=== PATIENT | male | born 1995 | race Two or more races ===

== ENCOUNTER 2019-09-05 07:00 | Inpatient (IN) | payer OTHER ==
[~2019-09-05] VITALS: Ht 175.3 cm; Wt 67.1 kg
[2019-09-12] MEDS ORDERED: ceFAZolin sod 2 GM in D5W 110 ML IVPB ONE (07:00)
[2020-02-05] VITALS (15 sets, daily range): BP systolic 96–118; BP diastolic 43–69
[2020-02-05] MEDS ORDERED: ceFAZolin sod 2 GM in NS 55 ML IVPB ONE (05:30)
[2020-02-05] MEDS ORDERED: Midazolam 2mg/2ml Inj ONE (06:38)
[2020-02-05] MEDS ORDERED: fentaNYL 100 mcg/2 mL IV ONE (06:38)
[2020-02-05] MEDS ORDERED: Bacitracin 50000 Units Vial ONE (06:40)
[2020-02-05] MEDS ORDERED: Gelfoam Size TOPIC ONE (06:40)
[2020-02-05] MEDS ORDERED: Thrombin 5000 units TOPIC ONE (06:40)
[2020-02-05] MEDS ORDERED: Lidocaine 1% MPF 10mg/ml 5ml ONE (06:43)
[2020-02-05] MEDS ORDERED: Succinylcholine 20mg/ml 10ml vial ONE (06:55)
[2020-02-05] MEDS ORDERED: Rocuronium Bromide 100mg/10ml Inj IV ONE (06:55)
[2020-02-05] MEDS ORDERED: Neostigmine 1mg/ml 10ml Inj ONE (07:00)
[2020-02-05] MEDS ORDERED: Phenylephrine 10mg/ml Vial ONE (07:00)
[2020-02-05] MEDS ORDERED: Glycopyrrolate 0.2mg/ml 1ml Vial ONE (07:00)
[2020-02-05] MEDS ORDERED: propofoL 1,000mg/100ml IV ONE (07:00)
[2020-02-05] MEDS ORDERED: LR 1000ml ONE (07:00)
[2020-02-05] MEDS ORDERED: Sterile Water Irrig 1000ml IRRIG ONE (07:00)
--- NOTE | 2020-02-05 07:33 | Brief Operative Note ---
Immediate Post Operative Note Operative Note Chief Complaint: neck pain and radiculopathy Pre-op Diagnosis: C45 hnp Procedure: Cervical 45 artificial disc replacement Post-op Diagnosis: same as pre-op Findings: consistent w/pre-op dx studies Surgeon: Gaurav Reactor Service Operator: Justin Anesthesiologist: ANDRY Anesthesia: general Specimen: none Complications: none Condition: stable Fluids: IVF Estimated Blood Loss: minimal Drains: none Implant(s) used?: Yes - prodisc c sz 5 Charly Nolasco MD Feb 05, 2020 07:33
--- NOTE | 2020-02-05 07:33 | Pre-Procedure Note/Attestation ---
Pre-Procedure Note/Attestation Complete Prior to Procedure Planned Procedure: not applicable Procedure Narrative: Cervical 45 artificial disc replacement Indications for Procedure Pre-Operative Diagnosis: C45 hnp Attestation I attest that I discussed the nature of the procedure; its benefits; risks and complications; and alternatives (and the risks and benefits of such alternatives ), prior to the procedure, with the patient (or the patient's legal retention representative). I attest that, if there was a reasonable possibility of needing a blood transfusion, the patient (or the patient's legal retention representative) was given the [facility] standardized written summary, pursuant to the Bryant Sergio Blood Safety Act ([place] Health and Safety Code # 1645, as amended). I attest that I re-evaluated the patient just prior to the surgery and that there has been no change in the patient's H&P, except as documented below: Charly Nolasco MD Feb 05, 2020 07:33
[2020-02-05] MEDS ORDERED: Milk of Magnesia 30ml Ud ORAL PRN (07:45)
[2020-02-05] MEDS ORDERED: Naloxone 0.4mg/ml Inj IVP PRN (07:45)
[2020-02-05] MEDS ORDERED: HYDROcodone/Acetamin 7.5/325 tab ORAL PRN ×2 (07:45)
[2020-02-05] MEDS ORDERED: Morphine Sulfate 2mg/ml Inj(IV/IM USE ONLY) IV PRN (07:45)
[2020-02-05] MEDS ORDERED: HYDROcodone/Acetamin 5/325 tab ORAL PRN (07:45)
[2020-02-05] MEDS ORDERED: Chloraseptic Spray 20mL Bottle ORAL PRN (07:45)
[2020-02-05] MEDS ORDERED: HYDROmorphone 1mg/ml Carpuject IVP PRN (07:45)
[2020-02-05] MEDS ORDERED: Morphine Sulfate 4mg/ml Inj (IV USE ONLY) IV PRN ×2 (07:45)
[2020-02-05] MEDS ORDERED: Metoclopramide 10mg/2ml Inj IVP PRN ×2 (07:45→08:15)
[2020-02-05] MEDS ORDERED: Atropine Sulfate 0.4mg/ml inj ONE (07:48)
[2020-02-05] MEDS ORDERED: Acetaminophen (Non formulary) 100 ML IV ONE (08:00)
--- NOTE | 2020-02-05 08:00 | Anethesia Preoperative Eval ---
Anesthesia Pre-op PMH/ROS General Date of Evaluation: Feb 05, 2020 Time of Evaluation: 07:05 Anesthesiologist: Cristhian ASA Score: ASA 2 Mallampati Score Class I : Soft palate, uvula, fauces, pillars visible Class II: Soft palate, uvula, fauces visible Class III: Soft palate, base of uvula visible Class IV: Only hard plate visible Mallampati Classification: Class II Surgeon: Gaurav Diagnosis: Cervical radiculopathy Surgical Procedure: ACDF Anesthesia History: none Family History: no anesthesia problems Allergies: Coded Allergies: No Known Allergies (Unverified , 02/05/20) Medications: see eMAR Patient NPO?: Yes Past Medical History Cardiovascular: Denies: HTN, CAD, MD, valve dz, arrhythmia, other Pulmonary: Denies: asthma, COPD, YOAN, other Gastrointestinal/Genitourinary: Reports: GERD - mild; Denies: CRI, ESRD, other Neurologic/Psychiatric: Denies: dementia, CVA, depression/anxiety, TIA, other Endocrine: Denies: DM, hypothyroidism, steroids, other HEENT: Denies: cataract (L), cataract (R), glaucoma, GAKONA (L), GAKONA (R), other Hematology/Immune: Denies: anemia, DVT, bleeding disorder, other Musculoskeletal/Integumentary: Denies: OA, RA, DJD, DDD, edema, other PMH Narrative: as above PSxH Narrative: none Anesthesia Pre-op Phys. Exam Physician Exam Last Vital Signs Date Time Temp Pulse Resp B/P (MAP) Pulse Ox O2 Delivery O2 Flow Rate FiO2 02/05/20 05:47 Room Air 02/05/20 05:46 98.0 59 18 114/65 (81) 99 Constitutional: NAD Neurologic: CN 2-12 intact Cardiovascular: RRR, no M/R/G Respiratory: CTA Gastrointestinal: S/NT/ND Airway Exam Mallampati Score: Class II MO: full Neck: flexible ROM: full Teeth: intact Dentures: no upper, no lower Justin Carlin MD Feb 05, 2020 08:00
[2020-02-05] MEDS ORDERED: LR 1000ml 1,000 ML IVLG SCH (08:15)
[2020-02-05] MEDS ORDERED: Ketorolac 30mg Inj IV PRN (08:15)
[2020-02-05] MEDS ORDERED: Meperidine 25mg/0.5ml Inj (FOR RIGORS ONLY) IV PRN (08:15)
[2020-02-05] MEDS ORDERED: DiphenhydrAMINE 50mg/ml Inj IVP PRN (08:15)
[2020-02-05] MEDS ORDERED: Morphine Sulfate 10mg/ml Inj ONE (08:20)
--- NOTE | 2020-02-05 09:39 | Immediate Post-Op Evaluation ---
Immediate Post-Op Evalulation Immediate Post-Op Evalulation Procedure: ACDF C4-C5 Date of Evaluation: Feb 05, 2020 Time of Evaluation: 09:38 IV Fluids: 800 Blood Products: none Estimated Blood Loss: <50 Urinary Output: none Blood Pressure Systolic: 102 Blood Pressure Diastolic: 49 Pulse Rate: 66 Respiratory Rate: 20 O2 Sat by Pulse Oximetry: 99 Temperature (Fahrenheit): 97.6 Pain Score (1-10): 1 Nausea: No Vomiting: No Complications none Patient Status: reacts, patent, extubated, none Hydration Status: adequate Justin Carlin MD Feb 05, 2020 09:39
--- NOTE | 2020-02-05 11:00 | NUR ---
TRANSFER TO ROOM BY BED FULLY AWAKE AND ALERT IN NO DISTRESS OR SOB , PAIN LEVEL AT 3 NO N/V NOTED DERMABOND DRESSING DRY AND INTACT NO BLEEDING V/S STABLE. CALL LIGHT AT REACH BED LOCKED LOW POSITION . BELONGINGS WITH OPS . ENDORSE TO Wanda MACKAY RN
--- NOTE | 2020-02-05 11:30 | NUR ---
NURSE NOTES: Patient arrived to unit at 1100 via bed from PACU. Received report from Shreya Arredondo RN. Patient is awake and oriented, in no apparent distress. Patient reporting no pain and is only requesting water, ice and water provided. Surgical site clean, no bleeding noted, ice pack in place. IV intact, patent. SCD's in place. Neuro check assessed in tact. All belongings given to patient. Side rails upx2, bed low and locked, call light within reach.
--- NOTE | 2020-02-05 13:48 | 48 Hour Post Anesthesia Eval ---
Post Anesthesia Evaluation Procedure: ACDF C4-C5 Date of Evaluation: Feb 05, 2020 Time of Evaluation: 13:47 Blood Pressure Systolic: 122 0: 76 Pulse Rate: 62 Respiratory Rate: 20 Temperature (Fahrenheit): 97.6 O2 Sat by Pulse Oximetry: 99 Airway: patent Nausea: No Vomiting: No Pain Intensity: 1 Hydration Status: adequate Cardiopulmonary Status: stable Mental Status/LOC: patient returned to baseline Follow-up Care/Observations: n/a Post-Anesthesia Complications: none Follow-up care needed: ready to discharge Justin Carlin MD Feb 05, 2020 13:48
[2020-02-05] MEDS ORDERED: NS w/KCl 20mEq 1000ml 1,000 ML IV SCH (14:00)
--- NOTE | 2020-02-05 14:32 | NUR ---
CASE MANAGEMENT: INITIAL REVIEW 24YR OLD HERE FROM HOME CC: BACK PAIN SI:HERNIATED NUCLEUS PULPOSUS PAIN, RADICULOPATHY 98.0 59 18 114/65 99% ON RA IS:IN SURGERY NOW C4-5 ARTIFICIAL DISC REPLACEMENT IV KCL @100ML/HR IV DECADRON Q6HR X4 DOSES \: 3E MED SURG UNIT
--- NOTE | 2020-02-05 14:33 | NUR ---
P.T Note: P.T evaluation completed and tx initiated per spinal protocol. Please refer to P.T evaluation full report. Education provided to patient re: spinal /movement precautions and proper body mechanics following c-spine surgical procedure thru written instructions, discussions and practice. Pt was able to verbalize understanding and was able to return demonstration. Pt currently functioning independently within surgical guidelines. No further P.T follow up needed. Anticipated DC to home tonight.
[2020-02-05] MEDS ORDERED: ceFAZolin sod 1 GM in D5W 55 ML IV SCH (15:00)
--- NOTE | 2020-02-05 15:22 | NUR ---
NURSE NOTES: Discharge order received from Dr. Nolasco. Order entered, will carry out.
--- NOTE | 2020-02-05 16:25 | Diagnostic Imaging Report ---
INDICATION: Pain, intraoperative TECHNIQUE: Intraoperative imaging Fluoroscopy time: 33.8 seconds Total dose: 0.80801 mGym2 Total number of images: 3 COMPARISON: None FINDINGS: Intraoperative images demonstrate surgical tool projected at the C4-5 disc. Subsequent images document placement of a disc prosthesis at C4-5. IMPRESSION: Intraoperative imaging, as described
[2020-02-05] MEDS ORDERED: Docusate 100mg cap ORAL SCH (18:00)
--- NOTE | 2020-02-05 18:04 | NUR ---
NURSE NOTES: Patient discharged without distress. Patient provided with discharge education and verbalized understanding of provided education. Discharge Rx provided and signed for. IV removed intact. ID band removed. Patient escorted to private vehicle.
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
--- NOTE | 2020-02-09 11:56 | Discharge Summary ---
Discharge Summary Hospital Course Date of Admission Feb 05, 2020 at 05:16 Date of Discharge Feb 05, 2020 at 17:55 Admitting Diagnosis Cervical radiculopathy Reason for Hospitalization: Elective surgery HPI Javier Doshi is a 24 year old male who was admitted on Feb 05, 2020 at 05: 16 for Herniated Nucleus Pulposus Pain,Radiculopathy Procedures s/p 02/05/[address] Nolasco 1. Anterior cervical diskectomy and artificial disc replacement of C4-C5, using a Synthes Cervical 5 ProDisc C. 2. Use of intraoperative microscope. 3. Motor-evoked potential monitoring. 4. Somatosensory-evoked potential monitoring. 5. Supervision and interpretation of fluoroscopy. Hospital Course status post surgery course of recovery uneventful initially IV fluids s/p perioperative antibiotic and steroid neurovascular status closely monitored, remained stable incision clean , dry and intact with dressing pain management was, pain was controlled remained hemodynamically stable ambulated with PT safe for ambulation DVT prophylaxis with SCD provided tolerated liquid diet , voided freely bowel regimen instituted patient was stable for discharge discharge instructions provided follow up with surgeon in the office as advised by surgeon FINAL DIAGNOSES 1. Intractable neck pain. 2. Cervical radiculopathy. 3. Herniation, C4-C5. 4. Neuroforaminal stenosis, C4-C5. 5. Stenosis. 6. s/p ACD abd ADR C4-C5 Discharge Medications Medication Profile: No Active Prescriptions or Reported Meds Discharge Condition Upon Discharge: stable Discharge Vital Signs Last Vital Signs Date Time Temp Pulse Resp B/P (MAP) Pulse Ox O2 Delivery O2 Flow Rate FiO2 02/05/20 16:00 99.0 76 16 110/67 (81) 98 02/05/20 10:35 Nasal Cannula 3 Discharge Disposition Patient was discharged home Discharge Instructions Discharge Instructions Special Instructions I have been assigned to complete a D/C Summary on this account. I was not involved in the patient management Janina Aj NP Feb 09, 2020 11:55
--- NOTE | 2020-02-23 15:00 | Diagnostic Imaging Report ---
INDICATION: Pain, intraoperative TECHNIQUE: Intraoperative imaging Fluoroscopy time: 33.8 seconds Total dose: 0.43559 mGym2 Total number of images: 3 COMPARISON: None FINDINGS: Intraoperative images demonstrate surgical tool projected at the C4-5 disc. Subsequent images document placement of a disc prosthesis at C4-5. IMPRESSION: Intraoperative imaging, as described
== END 2020-02-05 17:55 | disposition home or self-care (01) | DRG 518 ==
LOC: SDSOVERFLO 02-05 05:16 → 3E 02-05 11:30
PROC: 0RR30JZ Replacement of Cervical Vertebral Disc with Synthetic Substitute, Open Approach (ICD-10-PCS; principal; 2020-02-05 07:00)
DX: M50.121 Cervical disc disorder at C4-C5 level with radiculopathy (principal); M48.02 Spinal stenosis, cervical region; K21.9 Gastro-esophageal reflux disease without esophagitis
CPT/HCPCS: 36415; 72040; 76000; 86850; 86900; 86901; 87081; 94003; 94150; J2180; J2250; J2370; J2405; J2710